=== PATIENT | female | born 1980 | race Caucasian/White ===

== ENCOUNTER 2016-12-23 12:57 | Day surgery (SDC) | payer BC ==
[~2016-12-23] VITALS: Ht 160 cm; Wt 73.9 kg
[~2016-12-23 12:57] MED LIST: CEFAZOLIN 2GM PREMIX 50 ML IV PRN; DOXY100C2 PO; FENTANYL PF 100 MCG/2 ML VIAL. IV PRN; HYDR-2666 PO; HYDROmorphone 2 MG/ML VIAL IV PRN; IV RINGERS,LACTATED 1000ML 1,000 ML IV SCH; LIDOCAINE 1% 1 ML SYRINGE. ID PRN; LORA10TA68 PO; MORPHINE SULFATE 2 MG/ML DISP.SYRIN. IV PRN; NAPR550T3 PO; ONDANSETRON PF 4 MG/2 ML VIAL. IV PRN; PROCHLORPERAZINE 10 MG/2 ML VIAL. IV PRN
[2016-12-23] MEDS ORDERED: LIDOCAINE 2% 100 MG/5 ML SYRINGE. ONE (14:00)
[2016-12-23] MEDS ORDERED: ONDANSETRON PF 4 MG/2 ML VIAL. ONE (14:00)
[2016-12-23] MEDS ORDERED: DEXAMETHASONE SOD PHOS 20 MG/5 ML VIAL. ONE (14:00)
[2016-12-23] MEDS ORDERED: MIDAZOLAM HCL/PF 2 MG/2 ML VIAL. ONE (14:00)
[2016-12-23] MEDS ORDERED: PROPOFOL 20 ML IV ONE (14:00)
[2016-12-23] MEDS ORDERED: FENTANYL PF 100 MCG/2 ML VIAL. ONE (14:01)
[2016-12-23] MEDS ORDERED: BUPIVACAINE-EPI 0.5%-1:200000 50 ML VIAL. ONE (14:27)
[2016-12-23] MEDS ORDERED: SEVOFLURANE 31 TO 60 MINUTES. IH ONE (15:03)
--- NOTE | 2016-12-23 16:03 | PDOC ---
BRIEF OPERATIVE NOTE Pre-Op Diagnosis #[id number] right forearm mass excision of right forearm mass radha montalvo gen ebl 5 ivf 1100 carmen well to rr stable. LÁZARO MONTALVO MD Dec 23, 2016 16:03
[2016-12-23] MEDS ORDERED: HYDROCODONE/APAP 5/325MG TABLET. PO ONE (16:30)
[2016-12-23 16:45] VITALS: BP 99/55
--- NOTE | 2016-12-23 21:05 | OP ---
DATE OF SURGERY: 12/23/2016 PREOPERATIVE DIAGNOSIS: Right forearm mass. POSTOPERATIVE DIAGNOSIS: Right forearm mass. PROCEDURE: Excision of 2 cm subcutaneous right forearm mass involving the muscular fascia. SURGEON: Lázaro Montalvo M.D. ANESTHESIA: General. ESTIMATED BLOOD LOSS: 5 mL. IV FLUIDS: 1100 mL. INDICATIONS: The patient is a 36-year-old female with an exquisitely painful right forearm mass. She is here to have it excised. FINDINGS: The mass measured 2 cm. It did involve the fascia of the forearm musculature, but did not invade the musculature itself. The fascia was excised with the mass. There appeared to be a small cutaneous nerve in the subcutaneous fat from which this arose. PROCEDURE IN DETAIL: After informed consent was obtained, the patient was taken to the operating room and placed in supine position. After adequate induction of general anesthesia, she was prepped and draped in usual sterile fashion. This area was injected with local anesthetic and then a skin incision was made and extended through the subcutaneous tissue with cautery. The mass was then dissected out with cautery. It appeared to have a small peripheral nerve entering and exiting it most consistent with a neuroma. The nerve was divided sharply and then the mass was adherent to the fascia of the muscle, so the fascia was excised with the mass. The capsule of the mass was not violated during the surgery and normal subcutaneous fat was attached to the mass and was excised along with the mass. The mass was marked with a long stitch distal, short stitch proximal and a medium stitch was on the lateral part of the posterior forearm on the side of this arm. The area was inspected, it was hemostatic. Deep layer was closed with 3-0 Vicryl interrupted. Skin was closed with 4-0 Monocryl in subcuticular fashion. Sterile dressings were placed. She tolerated the procedure well. There were no apparent complications. She was then transferred in stable condition to the recovery room. LÁZARO MONTALVO MD DR: BOONE/jaz JOB#: [id number] / [id number] CHARO Love
--- NOTE | 2016-12-24 07:24 | ACF ---
FLAKITO PEREYRA 12/24/16 0724: Admit Criteria Forms Admit Criteria Forms Admit Criteria Forms MUSCULOSKELETAL DISEASE GRG Clinical Indications for Admission to Inpatient Care (Place 'X' for any and all applicable criteria): Hospital admission is needed for appropriate care of the patient because of 1 or more of the following: [ ]I. Fracture, dislocation, or other musculoskeletal injury requiring inpatient care(medical) as indicated by 1 or more of the following(4)(5)(6)(7) [ ]a) Vertebral fracture requiring observation for instability or neurologic compromise (8) [ ]b) Compartment syndrome (proven or cannot be ruled out during observation level of care) (9) [ ]c) Limb-threatening injury [ ]d) Major injury requiring inpatient stabilization such as traction initiation or external fixation before internal fixation or closure of complex or open fracture [ ]e) Major injury requiring inpatient treatment after emergency or observation level care (as appropriate) [ ]f) Severe pain requiring acute inpatient management [ ]g) Injury with suspicion of abuse or neglect (eg., child, dependent elderly) [ ]II. Newly diagnosed or suspected bone, joint, or orthopedic device infection (e.g., osteomyelitis, septic arthritis) needing 1 or more of the following(1)(2)(3) [ ]a) IV antibiotics that cannot be initiated in other than inpatient setting (e.g., patient too unstable or home infusion not available) [ ]b) Device removal or replacement [ ]c) Bone or soft tissue debridement [ ]d) Joint drainage (drain placement or repetitive aspirations) [ ]III. Severe rheumatologic disease (e.g., systemic lupus erythematosus, rheumatoid arthritis) with complications or comorbidities (Also use Optimal Recovery Care Criteria or General Recovery Criteria as appropriate on the basis of predominant condition), including 1 or more of the following( 10)(11)(12)(13) [ ]a) Severe infection (e.g., [employer] infection, sepsis) (14) [ ]b) Respiratory complications, including 1 or more of the following : [ ]i) Pleural effusion with respiratory compromise [ ]ii) Pulmonary hypertension with congestive failure [ ]iii) Respiratory failure [ ]iv) Pulmonary hemorrhage (15) [ ]c) Hematologic disease, including 1 or more of the following: [ ]i) Coagulopathy with bleeding [ ]ii) Thrombosis with hypercoagulable state [ ]iii) Thrombotic thrombocytopenic purpura [ ]d) Cerebritis with seizures, psychosis, or other severe abnormalities [ ]e) Vertebral destruction with monitoring needed for cervical myelopathy& possible respiratory compromise [ ]f) Exacerbation that requires inpatient treatment (e.g., intravenous immunosuppression) (16) [ ]g) Acute renal failure [ ]h) Cerebritis with seizures, psychosis, Altered mental status, or other neurologic abnormalities [ ]i) Pericardial effusion with tamponade [ ]j) Vertebral destruction, with monitoring needed for cervical myelopathy and possible respiratory compromise [ ]IV. Severe vasculitis with complications or comorbidities (Also use Optimal Recovery Care Criteria General Recovery Criteria as appropriate on the basis of predominant condition), including 1 or more of the following(11)(12)(17)(18)(19)(20) [ ]a) Exacerbation that requires inpatient treatment (e.g., intravenous immunosuppression) (19)(21) [ ]b) Pulmonary hemorrhage (15) [ ]c) [employer] vasculitis with seizures, psychosis, Altered mental status that is severe or persistent, or other severe abnormalities (22) [ ]d) Cerebral infarction [ ]e) Gastrointestinal ischemia [ ]f) Gangrene or threatened amputation [ ]g) Renal failure (16) [ ]h) Other significant complications of vasculitis ( eg., tissue or organ ischemia, organ dysfunction ) [ ]V. Severe myopathy as indicated by 1 or more of the following (28)(29) [ ]a) New onset of airway compromise or inability to swallow [ ]b) Respiratory deterioration with observation needed for impending respiratory failure [ ]c) Exacerbation that requires inpatient treatment (e.g., intravenous immunosuppression) [ ]. Severe crystal gout (arthropathy) indicated by 1 or more of the following (23)(24) [ ]a) Severe pain requiring acute inpatient management [ ]b) Exacerbation that requires inpatient treatment (e.g., intravenous treatment) [ ]VII.Rhabdomyolysis and 1 or more of the following (25)(26)(27) [ ]a) Acute renal failure [ ]b) Need for intravenous hydration after emergency or observation level care (as appropriate) [ ]c) Inability to maintain oral hydration [ ]d) Change in mental status [ ]e) Electrolyte abnormality that remains after emergency or observation level care (as appropriate) [ ]VIII Post amputation complication, as indicated by ANY ONE of the following [ ]a) Infection [ ]b) Dehiscence [ ]c) Myodesis failure [X]IX. Severe pain requiring acute inpatient management due to musculoskeletal condition [ ]X. Musculoskeletal Disease and ALL of the following: [ ]a) Symptom or finding for which emergency and observation care have failed or are not considered appropriate (Use General Criteria: Observation Care as appropriate) [ ]b) Presence of ANY ONE of the following [ ]i) A General Admission Criteria [ ]ii) A Pediatric General Admission Criteria The original [facility] [employer] content created by [facility] [email or web address] has been revised. The portions of the content which have been revised are identified through the use of italic text or in bold, and [facility] has neither reviewed nor approved the modified material. All other unmodified content is copyright [facility] [email or web address]. Please see references footnoted in the original [facility] [employer] edition 2016 LÁZARO MONTALVO MD 12/24/16 1633: Admit Criteria Forms Admit Criteria Forms Admit Criteria Forms this pt was not admitted so this form is obsolete. i can't/emr won't let me edit the form. FLAKITO PEREYRA Dec 24, 2016 07:24 LÁZARO MONTALVO MD Dec 24, 2016 16:33
== END 2016-12-23 17:21 | disposition home or self-care (01) ==
LOC: SURG 12:57
PROVIDERS: ATTEND Surgery
DX: M79.89 Other specified soft tissue disorders (principal); F41.9 Anxiety disorder, unspecified; F32.9 Major depressive disorder, single episode, unspecified; Z72.0 Tobacco use; Z72.89 Other problems related to lifestyle; Z98.51 Tubal ligation status; Z90.710 Acquired absence of both cervix and uterus
CPT/HCPCS: 25075; J0690; J1100; J2250; J2405; J2704; J3010; J7120

== ENCOUNTER 2017-01-11 06:37 | Day surgery (SDC) | payer BC ==
[~2017-01-11] VITALS: Ht 160 cm; Wt 73.9 kg
[~2017-01-11 06:37] MED LIST changes: -CEFAZOLIN 2GM PREMIX 50 ML IV PRN; -FENTANYL PF 100 MCG/2 ML VIAL. IV PRN; -HYDROmorphone 2 MG/ML VIAL IV PRN; -IV RINGERS,LACTATED 1000ML 1,000 ML IV SCH; -LIDOCAINE 1% 1 ML SYRINGE. ID PRN; -MORPHINE SULFATE 2 MG/ML DISP.SYRIN. IV PRN; -ONDANSETRON PF 4 MG/2 ML VIAL. IV PRN; -PROCHLORPERAZINE 10 MG/2 ML VIAL. IV PRN
[2017-01-11] MEDS ORDERED: LIDOCAINE 1% 1 ML SYRINGE. ID PRN (07:00)
[2017-01-11] MEDS ORDERED: fentaNYL PF VIAL 100 MCG/2 ML VIAL IV PRN (07:00)
[2017-01-11] MEDS ORDERED: ONDANSETRON PF 4 MG/2 ML VIAL. IV PRN (07:00)
[2017-01-11] MEDS ORDERED: MORPHINE SULFATE 2 MG/ML DISP.SYRIN. IV PRN (07:00)
[2017-01-11] MEDS ORDERED: PROCHLORPERAZINE 10 MG/2 ML VIAL. IV PRN (07:00)
[2017-01-11] MEDS ORDERED: HYDROmorphone 2 MG/ML VIAL IV PRN (07:00)
[2017-01-11] MEDS ORDERED: IV RINGERS,LACTATED 1000ML 1,000 ML IV SCH (07:00)
[2017-01-11] MEDS ORDERED: BUPIVAC MPF-EPI 0.5%-1:200000 30 ML VIAL. ONE (07:17)
[2017-01-11] MEDS ORDERED: PROPOFOL 20 ML IV ONE (07:36)
[2017-01-11] MEDS ORDERED: DESFLURANE 31 TO 60 MINUTES IH ONE (07:36)
[2017-01-11] MEDS ORDERED: LIDOCAINE 2% PF Vial for OR 5 ML VIAL. ONE (07:36)
[2017-01-11] MEDS ORDERED: DEXAMETHASONE SOD PHOS 20 MG/5 ML VIAL. ONE (07:36)
[2017-01-11] MEDS ORDERED: ONDANSETRON PF 4 MG/2 ML VIAL. ONE (07:36)
[2017-01-11] MEDS ORDERED: fentaNYL PF VIAL 100 MCG/2 ML VIAL ONE (07:37)
[2017-01-11] MEDS ORDERED: MIDAZOLAM HCL/PF 2 MG/2 ML VIAL. ONE (07:37)
[2017-01-11] MEDS: fentaNYL PF VIAL 100 MCG/2 ML VIAL IV PRN ×4 (09:02→09:35)
--- NOTE | 2017-01-11 09:04 | PDOC ---
BRIEF OPERATIVE NOTE Pre-Op Diagnosis nodular fascititis right forearm re-excision of nodular fascititis right forearm k asaf gen ebl 5 ivf 500 carmen well to rr stable. LÁZARO MONTALVO MD January 11, 2017 09:04
[2017-01-11] MEDS ORDERED: HYDROcodone/APAP 5/325MG 1 TAB TABLET PO ONE (09:30)
[2017-01-11 10:05] VITALS: BP 119/67
--- NOTE | 2017-01-11 16:19 | OP ---
DATE OF SURGERY: 01/11/2017 PREOPERATIVE DIAGNOSIS: Right forearm nodular fasciitis. POSTOPERATIVE DIAGNOSIS: Right forearm nodular fasciitis. PROCEDURE: Re-excision of right forearm nodular fasciitis. SURGEON: Lázaro Montalvo M.D. ANESTHESIA: General. ESTIMATED BLOOD LOSS: 5 mL. IV FLUIDS: 500 mL. INDICATIONS: The patient is a 36-year-old female who presented with a nodule on her right forearm, this was excised and pathology demonstrated this to be nodular fasciitis. She had margins that were positive anteriorly, distally, and medially. She is here today for re-excision. DESCRIPTION OF PROCEDURE: After informed consent was obtained, the patient was taken to the operating room and placed in supine position. After adequate induction of general anesthesia, she was prepped and draped in usual sterile fashion. An elliptical incision was made around her previous incision and the subcutaneous tissue was dissected down to the forearm musculature with cautery. This was done widely to ensure that the margins were negative. Care was taken to make sure that the medial margin and distal margin was sufficient and then anteriorly, the previous overlying skin was resected with the re-excision specimen, so the anterior margin was included as well. The lesion that was resected was measured and it was 5 x 2 cm. It was locked with a short stitch distal, long stitch lateral, and medium stitch medial. It was then sent to pathology for examination. The wound was irrigated. It was hemostatic. It was closed in layers. The fascia overlying the muscle was closed with a 3-0 Vicryl in a running fashion. The dermal and subdermal layer was closed with a 3-0 Vicryl in a running fashion. Skin was closed with a 4-0 Monocryl in subcuticular fashion. Sterile dressings were placed. She tolerated the procedure well. She was transferred in a stable condition to the recovery room. LÁZARO MONTALVO MD DR: BOONE/jaz JOB#: [id number] / [id number] MARYLOU Saucedo MD
--- NOTE | 2017-01-13 08:55 | PATHOLOGY ---
PATHOLOGY REPORT * * * * * * * * FINAL DIAGNOSIS: Skin and subcutaneous tissue, "right forearm lesion", re-excision: - Previous biopsy site present with associated acute and chronic inflammation and foreign body giant cells. - No evidence of residual nodular fasciitis. REPORT ELECTRONICALLY SIGNED BY: Iveth Metzger M.D. DATE/TIME: 01/13/2017 08:54 * * * * * * * * GROSS PATHOLOGY: Received in formalin labeled "Micah Coronado, right forearm lesion," is a 4.3 x 1.2 x 1.5 cm ellipse of skin oriented with a short suture near one tip designated as distal, which will be further designated as 12:00, a medium suture designating the medial margin, which will be further designated as 3:00, and a long suture designating the lateral margin which will be further designated as 9:00. The specimen is inked as follows: 12 to 6:00-black, 6 to 9:00-blue, 9 to 12:00-yellow. The epidermal surface displays a poorly circumscribed, irregular in contour, slightly wrinkled, light steen lesion measuring 3.0 x 0.3 cm. The specimen is sectioned into 16 pieces and entirely submitted in cassettes A1 through A8, with the 12:00 bisected tips placed in cassette A7 and the 6:00 bisected tips placed in cassette A8. (KAH; 01/11/2017) INITIAL CPT CODE(S): A; 48004 Professional services performed by [facility] [place] [address] Technical services performed by [facility] at [address] [place] [address], [facility] [address], [place] [address]. SPECIMEN(S) RECEIVED: A.Right forearm lesion CLINICAL HISTORY: Re-excision right forearm lesion PATIENT: MICAH CORONADO /AGE: 703/29/1980 (Age: 36) PATIENT #: [id number] ALT CASE #: SPECIMEN COLLECTION DATE: 01/11/2017 SPECIMEN RECEIVED DATE: 01/11/2017 [facility] - [address] [place] [address] - PHONE: [phone] * * * END OF REPORT * * *
== END 2017-01-11 10:23 | disposition home or self-care (01) ==
LOC: SURG 06:37
PROVIDERS: ATTEND Surgery
DX: M72.4 Pseudosarcomatous fibromatosis (principal); F41.9 Anxiety disorder, unspecified; F32.9 Major depressive disorder, single episode, unspecified; F17.200 Nicotine dependence, unspecified, uncomplicated; Z90.710 Acquired absence of both cervix and uterus; Z98.51 Tubal ligation status; Z72.89 Other problems related to lifestyle
CPT/HCPCS: 24071; J1100; J2250; J2405; J2704; J3010; J3490; 88305; 88307; J0780

== ENCOUNTER → 2021-01-02 | Outpatient (CLI) | payer BC ==
[~2021-01-02] MED LIST changes: -HYDR-2666 PO; +HYDR-2761 PO; +NAPR-677 PO; -NAPR550T3 PO
--- NOTE | 2021-01-02 14:50 | RAD ---
EXAM: AP, lateral and lumbosacral spot views of the lumbar spine DATE: 01/02/2021 10:37 AM INDICATION: Reason: BACK PAIN, NUMBNESS AND PAIN DOWN BILAT LOWER EXTREMITIES / Spl. Instructions: / History: COMPARISON: No Prior FINDINGS: 5 nonrib-bearing lumbar-type vertebral bodies. Vertebral body heights are preserved. Disc heights are preserved. No spondylolisthesis. Moderate to large volume colonic stool content is seen. Vascular ca lcifications are seen. IMPRESSION: 1. No evidence for acute fracture or subluxation. 2. Moderate to large volume colonic stool content is seen. Electronically signed by: Derick Riddle MD (01/02/2021 2:47 PM) [id number]
== END ==
LOC: RAD 10:22
PROVIDERS: ATTEND Family Medicine
DX: M54.5 Low back pain (principal)
CPT/HCPCS: 72100